=== PATIENT | male | born 1995 | race Hispanic/Latino ===

== ENCOUNTER 2017-08-04 13:56 | Emergency (ER) | payer BC ==
[~2017-08-04] VITALS: Ht 182.9 cm; Wt 74.8 kg
[2017-08-04] MEDS ORDERED: KETOROLAC TROMETHAMINE 60 MG/2 ML VIAL IM ONE (14:30)
[2017-08-04] MEDS ORDERED: CYCLOBENZAPRINE HCL 10 MG TAB PO ONE (14:30)
[2017-08-04] MEDS ORDERED: DIAZEPAM 2 MG TAB PO ONE (15:30)
--- NOTE | 2017-08-04 16:53 | Diagnostic Imaging Report ---
LUMBAR SPINE X-RAY - 5 VIEWS HISTORY: \S\pain \[id number] \[id number] COMPARISON: None available. FINDINGS: Bones: No acute displaced fracture. Minimal decreasing height of T12 vertebral body. Osseous alignment is within normal limits. Joints: Mild posterior disc space narrowing at L2-L3. Mild disc space narrowing at L5-S1 associated with facet arthrosis resulting in foraminal narrowing. Remaining levels are unremarkable. Soft tissues: The soft tissues appear unremarkable. IMPRESSION: Mild degenerative changes at L5-S1 resulting in foraminal narrowing. Age-indeterminate mild wedge compression deformity of T12 vertebral body. Signed by: Dr. Alberta William M.D. on 08/04/2017 4:49 PM
[2017-08-04 17:21] VITALS: BP 133/76
== END 2017-08-04 17:38 | disposition home or self-care (01) ==
LOC: ER 13:56
DX: M54.5 Low back pain (principal); S39.012A Strain of muscle, fascia and tendon of lower back, initial encounter; M62.830 Muscle spasm of back; Y93.89 Activity, other specified
CPT/HCPCS: 72110; 99284; J1885

== ENCOUNTER 2017-11-23 16:46 | Emergency (ER) | payer BC ==
[~2017-11-23] VITALS: Ht 182.9 cm; Wt 74.8 kg
--- NOTE | 2017-11-23 18:54 | Diagnostic Imaging Report ---
LEFT ANKLE X-RAY - 3 VIEWS HISTORY: \S\SWELLING \[id number] \[id number] \S\Y COMPARISON: None available. FINDINGS: Bones: No acute displaced fracture. Osseous alignment is within normal limits. Joints: The joint spaces are well-maintained. Soft tissues: Soft tissue swelling adjacent to the lateral malleolus. IMPRESSION: No acute bony abnormalities. Soft tissue swelling adjacent to the lateral malleolus. Signed by: Dr. Alberta William M.D. on 11/23/2017 6:51 PM
--- NOTE | 2017-11-23 18:55 | Diagnostic Imaging Report ---
LEFT FOOT X-RAY - 3 VIEWS HISTORY: \S\trauma \[id number] \[id number] COMPARISON: None available. FINDINGS: Bones: No acute displaced fracture. Osseous alignment is within normal limits. Joints: The joint spaces are well-maintained. Soft tissues: The soft tissues appear unremarkable. IMPRESSION: No acute radiographic abnormality. Signed by: Dr. Alberta William M.D. on 11/23/2017 6:52 PM
[2017-11-23 19:43] VITALS: BP 133/76
== END 2017-11-23 19:37 | disposition home or self-care (01) ==
LOC: ER 16:46
DX: M25.572 Pain in left ankle and joints of left foot (principal); S90.812A Abrasion, left foot, initial encounter; W16.522A Jumping or diving into swimming pool striking bottom causing other injury, initial encounter; Y93.11 Activity, swimming; Y92.34 Swimming pool (public) as the place of occurrence of the external cause
CPT/HCPCS: 99283

== ENCOUNTER 2018-02-24 04:51 | Emergency (ER) | payer BC ==
[~2018-02-24] VITALS: Ht 182.9 cm; Wt 77.1 kg
[2018-02-24 05:25] LABS: BASOPHILS % 0.6 % (0.0-1.0); EOSINOPHILS # (AUTO) 0.2 (0.0-0.4); EOSINOPHILS % 2.6 % (0.0-6.0); HEMATOCRIT 40.8 % (38.2-49.6); HEMOGLOBIN 13.8 g/dL (14.0-18.0); LYMPHOCYTES # (AUTO) 2.2 (1.0-3.2); LYMPHOCYTES % 33.7 % (18.0-39.1); MEAN CORPUSCULAR HEMOGLOBIN 30.7 pg (28-32); MEAN CORPUSCULAR HGB CONC 33.8 g/dL (31-35); MEAN CORPUSCULAR VOLUME 90.9 fL (81-99); MONOCYTES # (AUTO) 0.7 (0.2-0.8); MONOCYTES % 11.2 % (4.4-11.3); NEUTROPHILS # (AUTO) 3.4 (2.1-6.9); NEUTROPHILS % 51.7 % (38.7-80.0); PLATELET COUNT 203 x10e3/uL (140-360); RED BLOOD COUNT 4.49 x10e6/uL (4.3-5.7); RED CELL DISTRIBUTION WIDTH 12.2 % (11.7-14.4)
--- NOTE | 2018-02-24 05:34 | Diagnostic Imaging Report ---
CHEST SINGLE (PORTABLE), 02/24/2018 5:01 AM Technique: CHEST SINGLE (PORTABLE) Comparison: None available. Clinical history: Palpitations Findings: Unremarkable portable appearance of the heart, mediastinum, lungs and pleural spaces. Impression: 1. Lines/Tubes: None 2. No acute abnormality. Signed by: Dr Aga Zapata MD on 02/24/2018 5:31 AM
[2018-02-24 05:40] LABS: ALANINE AMINOTRANSFERASE 14 IU/L (0-55); ALBUMIN 3.9 g/dL (3.5-5.0); ALBUMIN/GLOBULIN RATIO 1.4 (0.8-2.0); ALKALINE PHOSPHATASE 72 IU/L (40-150); ANION GAP 11.8 mmol/L (8-16); BLOOD UREA NITROGEN 14 mg/dL (7-26); BUN/CREATININE RATIO 17 (6-25); CALCIUM 9.1 mg/dL (8.4-10.2); CARBON DIOXIDE 26 mmol/L (22-29); CHLORIDE 105 mmol/L (98-107); CREATINE KINASE 170 IU/L (30-200); CREATININE, SERUM 0.81 mg/dL (0.72-1.25); EST GLOMERULAR FILTRATION RATE > 60 ML/MIN (60-); GLUCOSE 103 mg/dL (74-118); POTASSIUM 3.8 mmol/L (3.5-5.1); SODIUM 139 mmol/L (136-145)
[2018-02-24 06:01] VITALS: BP 112/79
== END 2018-02-24 06:11 | disposition home or self-care (01) ==
LOC: ER 04:51
DX: R00.2 Palpitations (principal); R07.89 Other chest pain; F41.9 Anxiety disorder, unspecified
CPT/HCPCS: 36415; 71045; 80053; 82550; 82553; 84484; 85025; 93005; 99283